=== PATIENT | female | born 1955 | race Caucasian/White ===

== ENCOUNTER → 2020-10-05 | Outpatient (CLI) | payer MEDICARE, OTHER ==
[~2020-10-05] MED LIST: ADMELOG100 UNIT/1 SQ; AMLODIPINE BESYL5 MG PO; ATORVASTATIN CA40 MG PO; BASAGLAR K100 UNIT/1 SQ; CEFUROXIME500 MG PO; CIPRO500 MG PO; DIFLUCAN150 MG PO; ECOTRIN81 MG PO; ENULOSE10 GM/15 M PO; FERROUS SULFAT325 M2 PO; GINGER250 MG PO; GLUCOPHAGE1000 MG PO; JANUVIA100 MG PO; KOMBIGLYZE XR1 EACH PO; LEVAQUIN TAB 5500 MG PO; LEVAQUIN500 MG PO; LEXAPRO20 MG PO; LODINE CAP 300300 MG PO; LORTAB 5-325 M1 EACH PO; MACROBID 100 M100 MG PO; MYLICON CHEWABL80 MG PO; MYRBETRIQ25 MG PO; NAMENDA10 MG PO; NEURONTIN 300300 MG PO; OMEPRAZOLE20 M1 PO; PLAVIX 75 MG TA75 MG PO; PROTONIX40 MG PO; PROVIGIL200 MG PO; REGLAN10 MG PO; REQUIP1 MG PO; TENORMIN100 MG PO; VITAMIN B COMP1 EACH PO; VITAMIN B-121000 MCG PO; VITAMIN D250000 UNIT PO; ZOFRAN 4 MG TAB4 MG PO; ZOFRAN ODT 4 MG4 MG PO
== END ==
LOC: LAB 14:15
DX: R10.9 Unspecified abdominal pain (principal)
CPT/HCPCS: 36415; 82565

== ENCOUNTER → 2020-10-06 | Outpatient (CLI) | payer MEDICARE, SELFPAY | LOC: CT 09-20 08:00 | DX: R10.13 Epigastric pain (principal); K63.89 Other specified diseases of intestine | CPT/HCPCS: 74160; Q9967 ==

== ENCOUNTER → 2020-12-19 | Outpatient (CLI) | payer MEDICARE | LOC: CT 15:03 | DX: R93.5 Abnormal findings on diagnostic imaging of other abdominal regions, including retroperitoneum (principal); K59.00 Constipation, unspecified | CPT/HCPCS: 74160; Q9967 ==

== ENCOUNTER → 2021-01-03 | Outpatient (CLI) | payer MEDICARE | LOC: RAD 10:00 | DX: R14.0 Abdominal distension (gaseous) (principal); R10.9 Unspecified abdominal pain; R93.5 Abnormal findings on diagnostic imaging of other abdominal regions, including retroperitoneum | CPT/HCPCS: 74250 ==

== ENCOUNTER → 2021-02-19 | Outpatient (CLI) | payer MEDICARE | LOC: KOH-I 15:36 | DX: M25.551 Pain in right hip (principal); R09.89 Other specified symptoms and signs involving the circulatory and respiratory systems; M47.816 Spondylosis without myelopathy or radiculopathy, lumbar region; M16.11 Unilateral primary osteoarthritis, right hip | CPT/HCPCS: 71046; 72100; 73502 ==

== ENCOUNTER → 2021-06-15 | Outpatient (CLI) | payer MEDICARE | LOC: RAD 05-31 08:00 | DX: R13.10 Dysphagia, unspecified (principal); K46.9 Unspecified abdominal hernia without obstruction or gangrene | CPT/HCPCS: 74221 ==

== ENCOUNTER → 2021-08-08 | Outpatient (CLI) | payer MEDICARE | LOC: KOH-I 14:29 | DX: J32.9 Chronic sinusitis, unspecified (principal) | CPT/HCPCS: 70486 ==